=== PATIENT | male | born 1985 | race African-American/Black ===

== ENCOUNTER 2023-06-14 14:48 | Outpatient (CLI) | payer OTHER | END 2023-06-14 14:49 | disposition home or self-care (01) | LOC: MADRAD 14:48 | PROVIDERS: ATTEND Registered Nurse | DX: R06.02 Shortness of breath (principal) | CPT/HCPCS: 71046 ==

== ENCOUNTER 2023-07-31 13:12 | Emergency (ER) | payer OTHER | END 2023-07-31 14:59 | disposition home or self-care (01) | LOC: MADERS 13:12 | DX: H66.91 Otitis media, unspecified, right ear (principal); H60.91 Unspecified otitis externa, right ear; J45.909 Unspecified asthma, uncomplicated; F17.290 Nicotine dependence, other tobacco product, uncomplicated; Z79.51 Long term (current) use of inhaled steroids | CPT/HCPCS: 99282 ==

== ENCOUNTER 2023-07-31 13:31 | Outpatient (CLI) | payer OTHER | END 2023-07-31 13:32 | disposition home or self-care (01) | LOC: MADLAB 13:31 | PROVIDERS: ATTEND Internal Medicine Sleep Medicine | DX: J45.50 Severe persistent asthma, uncomplicated (principal) | CPT/HCPCS: 71046 ==